=== PATIENT | female | born 1975 | race Caucasian/White ===

== ENCOUNTER → 2016-07-08 | Outpatient (CLI) | payer BC | END | disposition home or self-care (01) | LOC: RAD.S 09:02 | PROC: 0HBU3ZX Excision of Left Breast, Percutaneous Approach, Diagnostic (ICD-10-PCS; principal; 2016-07-08) | DX: D24.2 Benign neoplasm of left breast (principal) ==

== ENCOUNTER → 2016-12-23 | Outpatient (CLI) | payer BC | END | disposition home or self-care (01) | LOC: RAD.S 10:51 | DX: N64.9 Disorder of breast, unspecified (principal); D24.2 Benign neoplasm of left breast ==